=== PATIENT | female | born 1985 | race Caucasian/White ===

== ENCOUNTER 2022-05-24 19:24 | Emergency (ER) | payer SELFPAY ==
[2022-05-24 20:38] VITALS: BP 119/75
[2022-05-24 20:45] VITALS: BP 115/70
[2022-05-24 21:00] VITALS: BP 103/63
[2022-05-24 21:13] LABS: BASO% 0.2 % (0-3); EOS% 0.7 % (0-8); HEMATOCRIT 38.8 % (37.0-47.0); HEMOGLOBIN 13.2 g/dl (12.0-16.0); IMMATURE GRANULOCYTES 0.2 % (0.0-5.0); LYMPH% 21.1 % (15-41); MEAN CELL VOLUME 94.2 fL CALC (80.0-100.0); MONO% 6.5 % (2-13); NEUT# 6.2 thou/uL (2.00-7.15); NEUT% 71.3 % (42-76); RED BLOOD COUNT 4.12 mill/uL (4.20-5.60)
[2022-05-24 21:15] VITALS: BP 115/61
[2022-05-24 21:19] LABS: URINE BILIRUBIN - DIPSTICK NEGATIVE (NEGATIVE); URINE BLOOD DIPSTICK LARGE (NEGATIVE); URINE COLOR RED; URINE GLUCOSE - DIPSTICK NEGATIVE (NEGATIVE); URINE KETONE NEGATIVE (NEGATIVE); URINE LEUK ESTERASE NEGATIVE (NEGATIVE); URINE NITRITE - DIPSTICK NEGATIVE (Negative); URINE PH 6.5 (4.5-8.0); URINE PROTEIN - DIPSTICK NEGATIVE (NEG-TRACE); URINE UROBILINOGEN - DIPSTICK 0.2 E.U./dL (0.2)
[2022-05-24 21:20] LABS: URINE RBC 50-100 RBC/hpf (0-5); URINE SQUAMOUS EPITHELIAL CELL FEW EPI/hpf (0-FEW); URINE WBC 0-2 WBC/hpf (0-5)
[2022-05-24 21:29] LABS: ALBUMIN 3.7 g/dL (3.2-5.0); ALKALINE PHOSPHATASE 62 u/l (38-126); ANION GAP 7 (6-22 (CALC)); BILIRUBIN, TOTAL 0.3 mg/dL (0.02-1.3); BUN 4 mg/dL (7-17); BUN/CREATININE RATIO 9 (12-20 (CALC)); CARBON DIOXIDE 25 mmol/l (22-30); CHLORIDE 107 mmol/l (95-108); CREATININE 0.5 mg/dL (0.5-1.0); GFR FOR AFR.AMER. > 60 ML/MIN (>=60 (CALC)); GFR OTHER RACES > 60 ML/MIN (>=60 (CALC)); POTASSIUM 3.6 mmol/l (3.5-5.1); SGOT/AST 24 u/l (14-36); SODIUM 136 mmol/l (137-146); TOTAL PROTEIN 6.6 g/dL (6.3-8.2)
[2022-05-24 21:30] VITALS: BP 93/56
[2022-05-24 21:45] VITALS: BP 106/60
[2022-05-24 22:11] LABS: BETA-HCG, QUANT(RESULT NUMBER) 33883 mIU/mL
== END 2022-05-24 23:08 | disposition home or self-care (01) | DRG 833 ==
LOC: ED 19:24
PROVIDERS: Emergency Medicine
DX: O20.0 Threatened abortion (principal); Z3A.16 16 weeks gestation of pregnancy